=== PATIENT | female | born 1960 ===

== ENCOUNTER 2023-07-20 10:49 | Outpatient (CLI) | payer OTHER, SELFPAY ==
--- NOTE | ~2023-07-20 | MR_ITS ---
EXAMINATION: MR abdomen wo/w con DATE: 07/20/2023 12:03 INDICATION: Liver disease, unspecified. TECHNIQUE: Magnetic resonance imaging (MRI) of the abdomen was performed without and with 16 mL Multi Jere intravenous contrast. COMPARISON: None. FINDINGS: There is a moderate-sized sliding hiatal hernia. There are 4 masses in the liver measuring up to 2.6 cm with interrupted peripheral puddling of contrast, consistent with hemangiomas. There is a 5 mm mas s with delayed hyperenhancement in the liver, likely a hemangioma. The gallbladder, spleen, pancreas, adrenal glands, and kidneys are normal. There are no dilated loops of bowel. There are no pathologic ally enlarged lymph nodes. There is no free intraperitoneal fluid. IMPRESSION: 1. Liver hemangiomas. Reviewed, dictated and finalized at location E. [facility] IMPRESSION: 1. Liver hemangiomas.
== END 2023-07-20 10:50 ==
LOC: MICIMG 10:51
PROVIDERS: PCP Physician Assistant; Visit Provider Physician Assistant
DX: K76.9 Liver disease, unspecified (principal)
CPT/HCPCS: 74183; A9577